=== PATIENT | male | born 1990 | race African-American/Black ===

== ENCOUNTER 2017-03-23 22:42 | Emergency (ER) | payer OTHER ==
[2017-03-23 22:51] VITALS: BP 119/76
--- NOTE | 2017-03-23 23:18 | ER Document Report ---
ED General - General Chief Complaint: Abdominal Pain Stated Complaint: SHARP ABDOMINAL PAIN Time Seen by Provider: 03/23/17 23:08 Notes: Patient is a 26-year-old male who presents with complaint of pain in his abdomen. Most his pain is in his upper abdomen. He says sometimes worse with eating. He says some decreased appetite. Pain is been ongoing now for 2 weeks. Says recently he is also had some blood in his stools. He says is not with every bowel movement but it is frequent. He did bring a picture. The picture he had normal consistency of stool but there was some red blood tinge to the toilet water. No passing of blood clots. Patient is otherwise healthy. He does not drink alcohol. He does not smoke. No family history of colon cancer. TRAVEL OUTSIDE OF THE [place] IN LAST 30 DAYS: No - Related Data Allergies/Adverse Reactions: No Known Allergies Allergy (Unverified 03/23/17 22:50) Past Medical History - Social History Smoking Status: Never Smoker Frequency of alcohol use: Rare Drug Abuse: None Family History: Reviewed & Not Pertinent Renal/ Medical History: Denies: Hx Peritoneal Dialysis - Immunizations Hx Diphtheria, Pertussis, Tetanus Vaccination: Yes Review of Systems - Review of Systems Notes: My Normal Review Basic REVIEW OF SYSTEMS: CONSTITUTIONAL : Denies fever, chills, or sweats. Denies recent illness. RESPIRATORY: Denies cough, cold, or chest congestion. Denies shortness of breath, difficulty breathing, or wheezing. GASTROINTESTINAL: upper abdominal pain. Denies nausea, vomiting, or diarrhea. GENITOURINARY: Denies difficulty urinating, painful urination, burning, frequency, or blood in urine. FEMALE GENITOURINARY: Denies vaginal bleeding, abnormal or irregular periods. LMP: MUSCULOSKELETAL: Denies neck or back pain or joint pain or swelling. SKIN: Denies rash or skin lesions. NEUROLOGICAL: Denies altered mental status or loss of consciousness. Denies headache. Denies weakness or paralysis or loss of use of either side. Denies problems with gait or speech. Denies sensory or motor loss. ALL OTHER SYSTEMS REVIEWED AND NEGATIVE. Physical Exam - Vital signs Vitals: Temp Pulse Resp BP Pulse Ox 98.2 F 81 18 119/76 98 03/23/17 22:50 03/23/17 22:50 03/23/17 22:50 03/23/17 22:50 03/23/17 22:50 - Notes Notes: General Appearance: Well nourished, alert, cooperative, no acute distress, no obvious discomfort. Well appearing. Vitals: reviewed, See vital signs table. Head: no swelling or tenderness to the head Eyes: PERRL, EOMI, Conjuctiva clear Mouth: No decreasd moisture Lungs: No wheezing, No rales, No rhonci, No accessory muscle use, good air exchange bilaterally. Heart: Normal rate, Regular rythm, No murmur, no rub Abdomen: Normal BS, soft, No rigidity, mild upper abdominal tenderness to palpation, No guarding, no rebound, no abdominal masses, no organomegaly Rectal: 2 external hemorrhoids. Not actively bleeding at this time. No fissures seen. Extremities: strength 5/5 in all extremities, good pulses in all extremities, no swelling or tenderness in the extremities, no edema. Skin: warm, dry, appropriate color, no rash Neuro: speech clear, oriented x 3, normal affect, responds appropriately to questions. Course - Vital Signs Vital signs: Temp Pulse Resp BP Pulse Ox 98.2 F 81 18 119/76 98 03/23/17 22:50 03/23/17 22:50 03/23/17 22:50 03/23/17 22:50 03/23/17 22:50 - Laboratory Result Diagrams: 03/23/17 23:30 03/23/17 23:30 Laboratory results interpreted by me: 03/23/17 23:30 Hgb 13.4 L MCH 26.6 L RDW 15.0 H Seg Neutrophils % 40.2 L Eosinophils % 6.6 H - Transfer of Care Notes: 03/24/17 00:51 Patient has some hemorrhoids on exam. This could be the etiology behind his rectal bleeding. Does have some associated upper abdominal pain. I do not know if this is related to bleeding or not. I will place him on Prilosec. I do not think he has an upper GI bleed being that the blood that he had on the picture was read. I will refer him to GI. I informed the patient that if they do not see a specific etiology of his bleeding he may eventually require colonoscopy polyps or possible mass. Patient understands this. I informed the patient must return to ER immediately if he has fevers, worsening pain, or heavy bleeding. Patient is well-appearing and stable for discharge. Patient agrees with plan and will be discharged home. Dictation of this chart was performed using voice recognition software; therefore, there may be some unintended grammatical errors. Discharge - Discharge Clinical Impression: Rectal bleeding Abdominal pain Qualifiers: Abdominal location: upper abdomen, unspecified Qualified Code(s): R10.10 - Upper abdominal pain, unspecified Hemorrhoids Qualifiers: Hemorrhoid type: unspecified Qualified Code(s): K64.9 - Unspecified hemorrhoids Condition: Good Disposition: HOME, SELF-CARE Additional Instructions: Please return to the ER immediately if you develop worsening pain, fevers, vomiting, or heavy bleeding form your rectum. Please follow up closely with the GI doctor for reevaluation and possible colonoscopy if they feel it is necessary. Please avoid NSAID medications such as Ibuprofen, Motrin, Aleve, or Advil. Tylenol is safe. Prescriptions: Omeprazole Magnesium [Prilosec Otc] 20 mg PO DAILY #30 tablet. Phenylephrine HCl/[place] Butter [Preparation H Suppository] 1 each RC DAILY #7 supp.rect Referrals: TOÑO PAGAN MD [ACTIVE STAFF] - Follow up in 3-5 days KEMI ALVARADO MD [ACTIVE STAFF] - Follow up in 3-5 days KWAN COLLINS MD [ACTIVE STAFF] - Follow up in 3-5 days
[2017-03-23 23:41] LABS: ABSOLUTE BASOPHILS # (AUTO) 0.1 10^3/uL (0.0-0.2); ABSOLUTE EOSINOPHILS # (AUTO) 0.4 10^3/uL (0.0-0.6); ABSOLUTE LYMPHOCYTES (AUTO) 2.6 10^3/uL (0.5-4.7); ABSOLUTE MONOCYTES (AUTO) 0.6 10^3/uL (0.1-1.4); ABSOLUTE NEUT (AUTO) 2.5 10^3/uL (1.7-8.2); BASOPHILS % (AUTO) 1.2 % (0-2); EOSINOPHILS % (AUTO) 6.6 % (0-6); HEMATOCRIT 40.5 % (37.9-51.0); HEMOGLOBIN 13.4 g/dL (13.5-17.0); HGB HCT DIFFERENCE -0.3; LYMPHOCYTES % (AUTO) 42.1 % (13-45); MEAN CORPUSCULAR HEMOGLOBIN 26.6 pg (27.0-33.4); MEAN CORPUSCULAR VOLUME 81 fl (80-97); MONOCYTES % (AUTO) 9.9 % (3-13); RED BLOOD COUNT 5.04 10^6/uL (4.35-5.55); SEGMENTED NEUTROPHILS % (AUTO) 40.2 % (42-78); WHITE BLOOD COUNT 6.1 10^3/uL (4.0-10.5)
[2017-03-24 00:02] LABS: ALANINE AMINOTRANSFERASE 41 U/L (21-72); ALBUMIN 4.1 g/dL (3.5-5.0); ALKALINE PHOSPHATASE 91 U/L (38-126); ANION GAP 11 (5-19); ASPARTATE AMINO TRANSFERASE 31 U/L (17-59); BILIRUBIN,DIRECT 0.3 mg/dL (0.0-0.4); BILIRUBIN,TOTAL 0.4 mg/dL (0.2-1.3); BLOOD UREA NITROGEN 13 mg/dL (7-20); CALCIUM 9.4 mg/dL (8.4-10.2); CARBON DIOXIDE 25 mmol/L (22-30); CHLORIDE 106 mmol/L (98-107); CREATININE RESULT 1.15 mg/dL (0.52-1.25); GLUCOSE 105 mg/dL (75-110); LIPASE 159.3 U/L (23-300); SODIUM 141.8 mmol/L (137-145); TOTAL PROTEIN 7.7 g/dL (6.3-8.2)
== END 2017-03-24 01:08 | disposition home or self-care (01) ==
LOC: ER 22:42
DX: R10.10 Upper abdominal pain, unspecified (principal); K62.5 Hemorrhage of anus and rectum; K64.4 Residual hemorrhoidal skin tags; R63.0 Anorexia
CPT/HCPCS: 36415; 80053; 83690; 85025; 99284

== ENCOUNTER 2017-07-14 19:11 | Emergency (ER) | payer OTHER ==
[2017-07-14 19:34] VITALS: BP 127/83
--- NOTE | 2017-07-14 20:39 | RADIOLOGY REPORT (SQ) ---
EXAM DESCRIPTION: KNEE LEFT 4 VIEW COMPLETED DATE/TIME: 07/14/2017 7:54 pm REASON FOR STUDY: KNEE PAIN COMPARISON: None. NUMBER OF VIEWS: Four views. TECHNIQUE: AP, lateral, and both oblique radiographic images acquired of the left knee. LIMITATIONS: None. FINDINGS: MINERALIZATION: Normal. BONES: No acute fracture or dislocation. No worrisome bone lesions. JOINT: No effusion. SOFT TISSUES: No soft tissue swelling. No radio-opaque foreign body. OTHER: No other significant finding. IMPRESSION: NO RADIOGRAPHIC EVIDENCE OF ACUTE INJURY. TECHNICAL DOCUMENTATION: JOB ID: [id number] [employer]- All Rights Reserved
--- NOTE | 2017-07-14 21:25 | ER Document Report ---
ED Extremity Problem, Lower - General Chief Complaint: Knee Pain Stated Complaint: KNEE PAIN Mode of Arrival: Ambulatory TRAVEL OUTSIDE OF THE [place] IN LAST 30 DAYS: No - HPI Patient complains to provider of: Pain Location: Knee Occurred: Last week Onset/Duration: Gradual Quality of pain: Achy Severity: Moderate Recent injury: No Exacerbated by: Movement, Walking Relieved by: Nothing Notes: Patient arrives with complaints of left knee pain. This been present for approximately 1 week. States that when he wakes up in the morning the pain seems to be the worst. The pain is worse with moving his knee specifically with flexion. He denies any traumatic injuries or falls. He denies any redness or swelling. No fever. He denies any numbness, tingling, weakness. He denies any chest pain or shortness of breath. No calf swelling. No hip pain. Denies any rashes. He has no other complaints at this time. - Related Data Allergies/Adverse Reactions: No Known Allergies Allergy (Unverified 03/23/17 22:50) Past Medical History - Social History Smoking Status: Unknown if Ever Smoked Family History: Reviewed & Not Pertinent Patient has suicidal ideation: No Patient has homicidal ideation: No Renal/ Medical History: Denies: Hx Peritoneal Dialysis Psychiatric Medical History: Reports: Hx Attention Deficit Hyperactivity Disorder, Hx Depression Past Surgical History: Reports: Hx Oral Surgery - wisdom teeth - Immunizations Hx Diphtheria, Pertussis, Tetanus Vaccination: Yes Review of Systems - Review of Systems -: Yes All other systems reviewed and negative Physical Exam - Vital signs Vitals: Temp Pulse Resp BP Pulse Ox 98.6 F 94 16 127/83 H 98 07/14/17 19:32 07/14/17 19:32 07/14/17 19:32 07/14/17 19:32 07/14/17 19:32 - Notes Notes: GENERAL: alert, cooperative, nontoxic, no distress. HEAD: normocephalic, atraumatic EYES: conjunctiva pink without discharge, no external redness or swelling. EARS: no external swelling, no external redness NOSE: atraumatic, no external swelling MOUTH/THROAT: mucous membranes moist and pink NECK: soft, supple, full range of motion, no meningismus. CHEST: no distress, lungs clear and equal throughout. No wheezing, rales, rhonchi. CARDIAC: regular rate and rhythm, no murmur, normal capillary refill, normal pulses. BACK: full range of motion, no CVA tenderness. EXTREMITIES: full range of motion of all extremities. No redness, no swelling. Patient is noted to have tenderness along the left patellar tendon. There is no redness, no swelling. He has no ligament instability. There is no swelling to the knee. No ligament instability. Normal pulse and sensation distally. No signs of compartment syndrome. No calf swelling. NEURO: alert and oriented 3, no focal deficits, full range of motion of all extremities. PYSCH: appropriate mood, affect. Patient is cooperative. SKIN: pink, warm, dry, no rash. Course - Re-evaluation Re-evalutation: 07/14/17 21:22 Patient is nontoxic appearing with stable vitals. The patient had nontraumatic left knee pain for the last week. He has tenderness along the patellar tendon. The patellar tendon is intact. He has no ligament instability. There is no redness, swelling, fever, hotness to the knee. There is no sign of infection. There is no calf pain or swelling. No sign of compartment syndrome. The patient is a normal neurovascular exam. X-rays of the knee showed no acute abnormality. Patient will be placed in an Matt wrap and discharged home on NSAIDs for what is likely to be tendinitis. He will be instructed to follow-up with orthopedics if not better in 7-10 days, sooner for increased pain, fever, redness, swelling, any further concerns. The patient is noted to have elevated blood pressure during today's emergency department visit. The patient was informed of this finding. The patient was instructed that this may be related to pre-hypertension and requires further evaluation with a primary care provider. The patient has no hypertensive symptoms at this time. The patient's emergency department workup and current diagnosis were explained to the patient and or family. Follow-up instructions were provided. Medications if prescribed were discussed. Instructions for when to return to the emergency department including specific worrisome symptoms were discussed with the patient and/or family. - Vital Signs Vital signs: Temp Pulse Resp BP Pulse Ox 98.6 F 94 16 127/83 H 98 07/14/17 19:32 07/14/17 19:32 07/14/17 19:32 07/14/17 19:32 07/14/17 19:32 - Diagnostic Test Radiology reviewed: Image reviewed, Reports reviewed - Negative left knee Procedures - Immobilization LEFT Knee Pre-Proc Neuro Vasc Exam: Normal Immobilizer type: Matt wrap Performed by: RN Post-Proc Neuro Vasc Exam: Normal Alignment checked and good: Yes Discharge - Discharge Clinical Impression: Patellar tendinitis, left knee Condition: Stable Disposition: HOME, SELF-CARE Instructions: Ice & Elevation ([facility]), Sprained Knee ([facility]) Additional Instructions: Take medications as prescribed. Wear Matt wrap as needed for comfort. Rest, ice , elevate your knee. Take the medications consistently to obtain an anti- inflammatory effect. Follow-up if not better in 7-10 days, sooner for increased pain, fever, redness, any further concerns. Your blood pressure was elevated during today's visit. Have this rechecked with your doctor. Prescriptions: Naproxen [Naprosyn] 500 mg PO BID #20 tablet Forms: Elevated Blood Pressure Referrals: JOVITA PATEL DO [ACTIVE STAFF] - Follow up as needed
== END 2017-07-14 21:40 | disposition home or self-care (01) ==
LOC: ER 19:11
DX: M76.52 Patellar tendinitis, left knee (principal); M25.562 Pain in left knee
CPT/HCPCS: 99283